=== PATIENT | male | born 1965 | race Caucasian/White ===

== ENCOUNTER 2018-03-14 07:33 | Emergency (ER) | payer SELFPAY ==
[~2018-03-14] VITALS: Ht 172.7 cm; Wt 75.0 kg
[~2018-03-14 07:33] MED LIST: ZOFR4TAB3 SL
[2018-03-14 07:42] VITALS: BP 134/85; PULSE 107; RESP 19; TEMP 99.3; O2SAT 95
[2018-03-14] MEDS ORDERED: SODIUM CHLORIDE 0.9% FLUSH 10 ML FLUSH IVF PRN (08:15)
[2018-03-14 08:23] VITALS: BP 141/109; PULSE 77; RESP 20; O2SAT 95
[2018-03-14] MEDS ORDERED: LORazepam 2 MG/ML VIAL IV PUSH ONE (08:30)
[2018-03-14 08:36] LABS: BICARBONATE 18.6 MEQ/L (21.0-32.0); CALCIUM 9.6 MG/DL (8.5-10.1); CREATININE 0.86 MG/DL (0.60-1.30)
--- NOTE | 2018-03-14 09:30 | PD ---
HPI Chief Complaint: Seizure Time Seen by Provider: 08:06 Travel History International Travel<30 days: No Contact w/Intl Traveler<30days: No Traveled to known affect area: No History of Present Illness HPI This is a 52-year-old male with a history of alcohol abuse, seizures secondary to alcohol withdrawal, presents here after having a witnessed tonic-clonic seizure. According to the paramedics he was sitting at a bar when he started to seize. Reportedly the patrons there helped ease him down to the floor. There was no reported fall. There is no reported striking of his head. There is report that he was postictal up to 10 minutes. When he arrived here he was awake and answering questions. Patient states that he last drank yesterday. He does report that he has been drinking less over the last several days. He is a heavy drinker. He has had previous withdrawal seizures. There is no incontinence. There is no biting of his tongue. PFSH Past Medical History Blood Disorders: No Anxiety: Yes Depression: Yes Cancer: No Cardiovascular Problems: No Diminished Hearing: No Endocrine: No Genitourinary: No Hypertension: Yes Immune Disorder: No Musculoskeletal: No Neurologic: Yes Psychiatric: Yes Reproductive: No Respiratory: No Immunizations Current: No Seizures: Yes (ETOH RELATED) PNEUMOCCOCAL Vaccine (Year): 2 ?: Not Past Surgical History Abdominal Surgery: No AICD: No Appendectomy: Yes Cardiac Surgery: No Ear Surgery: No Endocrine Surgery: No Eye Surgery: No Genitourinary Surgery: No Gynecologic Surgery: No Joint Replacement: No Oral Surgery: No Pacemaker: No Thoracic Surgery: No Tonsillectomy: Yes Other Surgery: Yes (APPENDECTOMY TONSILECTOMY) Social History Alcohol Use: Yes (1/2 [place] DAILY) Tobacco Use: Yes (1/2 PPD) Substance Use: No Allergies-Medications (Allergen,Severity, Reaction): Coded Allergies: penicillin G (Unverified Allergy, Severe, Hives, 03/14/18) Reported Meds & Prescriptions Reported Meds & Active Scripts Active No Active Prescriptions or Reported Medications Review of Systems Except as stated in HPI: all other systems reviewed are Neg General / Constitutional: No: Fever, Chills Eyes: No: Diploplia, Blurred Vision HENT: No: Headaches, Neck Pain Cardiovascular: Positive: Tachycardia, No: Chest Pain or Discomfort, Palpitations, Irregular Rhythm Respiratory: No: Cough, Shortness of Breath Gastrointestinal: No: Nausea, Vomiting, Abdominal Pain Genitourinary: No: Frequency, Dysuria Musculoskeletal: No: Weakness, Pain Neurologic: Positive: Seizures, No: Weakness, Dizziness, Headache, Incontinence Psychiatric: Positive: Substance Abuse, No: Depression Physical Exam Narrative GENERAL: Well-developed well-nourished male who appears mildly tremulous. SKIN: Focused skin assessment warm/dry. HEAD: Atraumatic. Normocephalic. EYES: No scleral icterus. No injection or drainage. ENT: No nasal bleeding or discharge. Mucous membranes pink and moist. NECK: Trachea midline. No JVD. Supple. CARDIOVASCULAR: Sinus tachycardia. No murmur appreciated. RESPIRATORY: No accessory muscle use. Clear to auscultation. Breath sounds equal bilaterally. GASTROINTESTINAL: Abdomen soft, non-tender, nondistended. No rebound. No guarding. No hepatosplenomegaly. MUSCULOSKELETAL: No obvious deformities. No clubbing. No cyanosis. No edema. NEUROLOGICAL: Awake and alert. No obvious cranial nerve deficits. Motor grossly within normal limits. Normal speech. Patient is mildly tremulous. Data Data Last Documented VS Vital Signs Date Time Temp Pulse Resp B/P (MAP) Pulse Ox O2 Delivery O2 Flow Rate FiO2 03/14/18 08:23 77 20 141/109 (120) 95 Room Air 03/14/18 07:42 99.3 Orders Orders Basic Metabolic Panel (Bmp) (03/14/18 08:08) Alcohol (Ethanol) (03/14/18 08:08) Blood Glucose (03/14/18 08:08) Ecg Monitoring (03/14/18 08:08) Iv Access Insert/Monitor (03/14/18 08:08) Oximetry (03/14/18 08:08) Sodium Chloride 0.9% Flush (Ns Flush) (03/14/18 08:15) Lorazepam Inj (Ativan Inj) (03/14/18 08:30) Prochlorperazine Inj (Compazine Inj) (03/14/18 10:45) Electrocardiogram (03/14/18 07:45) Labs Laboratory Tests Test 03/14/18 08:10 Blood Urea Nitrogen 11 MG/DL Creatinine 0.86 MG/DL Random Glucose 164 MG/DL Calcium Level 9.6 MG/DL Sodium Level 139 MEQ/L Potassium Level 3.4 MEQ/L Chloride Level 98 MEQ/L Carbon Dioxide Level 18.6 MEQ/L Anion Gap 22 MEQ/L Estimat Glomerular Filtration Rate 94 ML/MIN Ethyl Alcohol Level 23 MG/DL MDM Medical Decision Making Medical Screen Exam Complete: Yes Emergency Medical Condition: Yes Differential Diagnosis Alcohol withdrawal seizure versus metabolic derangement versus seizure disorder. Narrative Course 52-year-old male history of chronic alcohol abuse, presents here after having a seizure. Patient was sitting at a bar stool when he started to seize. He was eased down by his friends there. There is no reported head trauma. Patient does state that he is willing to try to stop drinking. I will write him for 3 days of Librium. He will start at 25 mg every 6 hours for 3 days. His mom who is 1 of our employees here at the hospital will take him home. He is instructed to drink plenty of fluids. Instructed return for any other reason. He is also mildly hypokalemic. He will be given a pill before his discharge and told to increase his potassium rich food. Diagnosis Primary Impression: Alcohol withdrawal seizure Additional Impression: Mild hypokalemia Referrals: [facility] Additional Instructions: Do not drink while taking the Librium. If you choose to start drinking again, stop the Librium. Med/Other Pt SpecificInfo: Prescription(s) given Scripts No Active Prescriptions or Reported Meds Disposition: 01 DISCHARGE HOME Condition: Stable Carlos Alberto Fernandes MD Mar 14, 2018 09:30
[2018-03-14] MEDS ORDERED: PROCHLORPERAZINE INJ 10 MG/2 ML VIAL IV PUSH ONE (10:45)
[2018-03-14 14:49] VITALS: BP 156/84
--- NOTE | 2018-03-14 15:42 | EKG ---
Date Performed: 03/14/2018 Time Performed: 07:45:40 PTAGE: 52 years EKG: SINUS TACHYCARDIA POSSIBLE RIGHT VENTRICULAR CONDUCTION DELAY ABNORMAL RHYTHM ECG Since the PREVIOUS TRACING , no significant change noted PREVIOUS TRACIN07/18/2015 15.59 DOCTOR: Karen Chanel Interpretating Date/Time 03/14/2018 15:41:31
== END 2018-03-14 14:51 | disposition home or self-care (01) ==
LOC: NEPC 07:33
DX: F10.239 Alcohol dependence with withdrawal, unspecified (principal); E87.6 Hypokalemia; F17.200 Nicotine dependence, unspecified, uncomplicated; Y90.1 Blood alcohol level of 20-39 mg/100 ml
CPT/HCPCS: 80048; 80307; 93005; 96374; 96375; 99284; J0780; J2060